=== PATIENT | male | born 1945 | race Caucasian/White ===

== ENCOUNTER 2021-05-10 13:12 | Emergency (ER) | payer OTHER ==
[~2021-05-10] VITALS: Ht 180.3 cm; Wt 98.0 kg
[2021-05-10] MEDS ORDERED: BASAGLAR K100 UNIT/1 SC (13:51)
[2021-05-10] MEDS ORDERED: LEVSOD137 PO (13:52)
[2021-05-10] MEDS ORDERED: PRAV20 PO (13:52)
[2021-05-10] MEDS ORDERED: DILT120ERA PO (13:53)
[2021-05-10] MEDS ORDERED: LOSA50 PO (13:53)
[2021-05-10] MEDS ORDERED: CITALOPRAM HBR20 M1 PO (13:54)
[2021-05-10] MEDS ORDERED: ACET500 PO (17:38)
== END 2021-05-10 18:07 | disposition home or self-care (01) ==
LOC: ER 13:12
DX: S72.112A Displaced fracture of greater trochanter of left femur, initial encounter for closed fracture (principal); F17.200 Nicotine dependence, unspecified, uncomplicated; W19.XXXA Unspecified fall, initial encounter
CPT/HCPCS: 73502; 73552; 73700; 99285-25

== ENCOUNTER 2021-05-22 17:21 | Observation (INO) | payer OTHER ==
[~2021-05-22] VITALS: Ht 182.9 cm; Wt 87.0 kg
[~2021-05-22 17:21] MED LIST: ACET500 PO; BASAGLAR K100 UNIT/1 SC; CITALOPRAM HBR20 M1 PO; DILT120ERA PO; LEVSOD137 PO; LOSA50 PO; PRAV20 PO
[2021-05-22 18:02] LABS: BASOPHILS ABSOLUTE AUTO 0.03 K/mm3 (0.00-0.23); BASOPHILS PERCENT AUTO 0 % (0-2); EOSINOPHILS ABSOLUTE AUTO 0.01 K/mm3 (0.00-0.68); EOSINOPHILS PERCENT AUTO 0 % (0-6); Hematocrit 40.7 % (37.0-53.0); Hemoglobin 14.3 g/dL (13.5-17.5); IMMATURE GRAN ABSOLUTE AUTO 0.06 K/mm3 (0.00-0.10); IMMATURE GRAN PERCENT AUTO 0 % (0-1); LYMPHOCYTES ABSOLUTE AUTO 0.97 K/mm3 (0.84-5.20); LYMPHOCYTES PERCENT AUTO 7 % (21-46); MONOCYTES ABSOLUTE AUTO 1.23 K/mm3 (0.16-1.47); MONOCYTES PERCENT AUTO 9 % (4-13); Mean Corpuscular HGB 32.9 pg (26.0-34.0); Mean Corpuscular HGB Conc 35.1 g/dL (31.5-36.5); Mean Corpuscular Volume 94 fL (80-100); Mean Platelet Volume 9.3 fL (9.1-12.4); NEUTROPHILS ABSOLUTE AUTO 11.88 K/mm3 (1.96-9.15); NEUTROPHILS PERCENT AUTO 84 % (41-73); Platelet Count 333 K/mm3 (150-400); RDW Coefficient Variation 14.3 % (11.7-14.2); Red Blood Cell Count 4.34 M/mm3 (4.30-5.90); White Blood Cell Count 14.18 K/mm3 (4.00-11.30)
[2021-05-22 18:34] LABS: Alanine Aminotransfer (ALT/SGP 48 U/L (12-78); Albumin, Blood 3.1 g/dL (3.4-5.0); Alk Phos 160 U/L (50-136); Anion Gap 10 mmol/L (6-16); Aspartate Aminotrans (AST/SGOT 60 U/L (12-37); Bilirubin, Total 0.8 mg/dL (0.1-1.0); Blood Urea Nitrogen 13 mg/dL (8-24); Bun/Creatinine Ratio 18.4 (12.0-20.0); CO2, Blood 19 mmol/L (21-32); Calcium, Blood 9.1 mg/dL (8.5-10.1); Chloride, Blood 104 mmol/L (98-108); Creatinine, Blood 0.71 mg/dL (0.60-1.20); Globulin, Blood 3.1 g/dL (2.2-4.0); Glomerular Filtration Rate >60 (60-); Glucose, Blood 348 mg/dL (70-99); Potassium, Blood 5.1 mmol/L (3.5-5.5); Sodium, Blood 133 mmol/L (136-145); Total Protein, Blood 6.2 g/dL (6.4-8.2); Troponin I 0.041 ng/mL (0.000-0.040)
[2021-05-22] MEDS ORDERED: ASPI81CH PO (22:04)
--- NOTE | 2021-05-23 01:41 | NUR ---
ADMISSION: LATE ENTRY FOR 05/22/212129 PATIENT WAS RECIEVED VIA STRETCHER FROM ER WAS ABLE TO TRANSFER TO THE BED ON HIS OWN. PATIENT IS ORIENTED TO ROOM AND CALL [facility]. MULTIPLE FALLS AT HOME, BED ALARM IS ON. THERE IS A SUSPICIOUS BRUISE ON THE BOTTOM OF THE LEFT FOOT JUST BELOW THE TOES. THERE ARE MULTIPLE SCABS OBSERVED ON BILAT KNEES AND SHINS THAT PATIENT ATTRIBUTES TO FALLS AND BUMPING ONTO THINGS. PATIENT LIVES ON DAUGHTERS PROPERTY BUT IN A SEPARATE HOUSE. WILL NEED PT/OT EVAL FOR SELF CARE AND SAFETY AT HOME.
[2021-05-23 01:55] LABS: Hematocrit 38.5 % (37.0-53.0); Hemoglobin 13.5 g/dL (13.5-17.5); Mean Corpuscular HGB 32.7 pg (26.0-34.0); Mean Corpuscular HGB Conc 35.1 g/dL (31.5-36.5); Mean Corpuscular Volume 93 fL (80-100); Mean Platelet Volume 9.3 fL (9.1-12.4); Platelet Count 276 K/mm3 (150-400); RDW Standard Deviation 46.3 fL (35.1-46.3); Red Blood Cell Count 4.13 M/mm3 (4.30-5.90); White Blood Cell Count 10.61 K/mm3 (4.00-11.30)
[2021-05-23 02:50] LABS: Anion Gap 7 mmol/L (6-16); Blood Urea Nitrogen 12 mg/dL (8-24); Bun/Creatinine Ratio 16.7 (12.0-20.0); CO2, Blood 24 mmol/L (21-32); Calcium, Blood 8.8 mg/dL (8.5-10.1); Chloride, Blood 107 mmol/L (98-108); Creatinine, Blood 0.72 mg/dL (0.60-1.20); Glomerular Filtration Rate >60 (60-); Glucose, Blood 178 mg/dL (70-99); Potassium, Blood 4.4 mmol/L (3.5-5.5); Sodium, Blood 138 mmol/L (136-145); Troponin I 0.031 ng/mL (0.000-0.040)
--- NOTE | 2021-05-23 06:04 | NUR ---
SHIFT SUMMARY: PATIENT CONTINUED TO HAVE LEFT SHOULDER AND LEFT RIB AREA PAIN. DR AYALA WAS NOTIFIED AND ORDER FOR IV MORPHINE 2.5 MG PRN WAS OBTAINED AND WAS GIVEN WITH GOOD EFFECT. TROPONINS ARE TRENDING DOWN, 0.031 WAS LAST RESULT. BED ALARM IS ON FOR SAFETY.
[2021-05-23] MEDS ORDERED: OMEP20ER PO (13:32)
[2021-05-23] MEDS ORDERED: ONDA4ODT MM (13:32)
--- NOTE | 2021-05-23 16:50 | NUR ---
DISCHARGE PATIENT TRANSPORTED VIA WHEELCHAIR TO PRIVATE VEHICLE. DISCHARGE INSTRUCTIONS EXPLAINED TO PATIENT. PATIENT STATED UNDERSTANDING. PACKET SENT WITH PATIENT. IV REMOVED WITHOUT DIFFICULTY. TELE REMOVED WITHOUT DIFFICULTY. BELONGINGS SENT WITH PATIENT. MEDICATIONS FAXED TO PERFERRED PHARMACY. PATIENT TO SCHEDULE FOLLOW UP WITH PCP.
== END 2021-05-23 16:49 | disposition home or self-care (01) ==
LOC: ER 17:21 → MEDS 17:22
PROVIDERS: Emergency Medicine; ADMIT Internal Medicine
DX: R77.8 Other specified abnormalities of plasma proteins (principal); R07.89 Other chest pain; R11.2 Nausea with vomiting, unspecified; I10 Essential (primary) hypertension; E11.9 Type 2 diabetes mellitus without complications; D72.829 Elevated white blood cell count, unspecified; Z79.4 Long term (current) use of insulin; Z87.891 Personal history of nicotine dependence
CPT/HCPCS: 36415; 71045; 80048; 80053; 82947; 83690; 84484; 85025; 85027; 93005; 93010; 97116; 97162; A9270; J1650; J1815; J2270

== ENCOUNTER 2022-11-20 10:58 | Inpatient (IN) | payer OTHER ==
[~2022-11-20] VITALS: Ht 182.9 cm; Wt 83.7 kg
[~2022-11-20 10:58] MED LIST changes: +ASPI81CH PO; +OMEP20ER PO; +ONDA4ODT MM
[2022-11-20 12:56] LABS: BASOPHILS ABSOLUTE AUTO 0.04 K/mm3 (0.00-0.23); BASOPHILS PERCENT AUTO 0 % (0-2); EOSINOPHILS ABSOLUTE AUTO 0.04 K/mm3 (0.00-0.68); EOSINOPHILS PERCENT AUTO 0 % (0-6); Hematocrit 33.6 % (37.0-53.0); Hemoglobin 11.4 g/dL (13.5-17.5); IMMATURE GRAN ABSOLUTE AUTO 0.07 K/mm3 (0.00-0.10); IMMATURE GRAN PERCENT AUTO 0 % (0-1); LYMPHOCYTES ABSOLUTE AUTO 1.07 K/mm3 (0.84-5.20); LYMPHOCYTES PERCENT AUTO 6 % (21-46); MONOCYTES ABSOLUTE AUTO 1.35 K/mm3 (0.16-1.47); MONOCYTES PERCENT AUTO 8 % (4-13); Mean Corpuscular HGB 32.5 pg (26.0-34.0); Mean Corpuscular HGB Conc 33.9 g/dL (31.5-36.5); Mean Corpuscular Volume 96 fL (80-100); NEUTROPHILS ABSOLUTE AUTO 15.26 K/mm3 (1.96-9.15); NEUTROPHILS PERCENT AUTO 86 % (41-73); Platelet Count 207 K/mm3 (150-400); RDW Coefficient Variation 12.2 % (11.7-14.2); RDW Standard Deviation 42.7 fL (35.1-46.3); Red Blood Cell Count 3.51 M/mm3 (4.30-5.90); White Blood Cell Count 17.83 K/mm3 (4.00-11.30)
[2022-11-20 13:11] LABS: Albumin, Blood 2.3 g/dL (3.4-5.0); Albumin/Globulin Ratio 0.7 (0.8-1.8); Bilirubin, Total 0.4 mg/dL (0.1-1.0); Bun/Creatinine Ratio 25.7 (12.0-20.0); Calcium, Blood 8.1 mg/dL (8.5-10.1); Creatinine, Blood 0.94 mg/dL (0.60-1.20); Globulin, Blood 3.2 g/dL (2.2-4.0); Potassium, Blood 4.7 mmol/L (3.5-5.5); Total Protein, Blood 5.5 g/dL (6.4-8.2)
[2022-11-20 14:21] LABS: Source, Urine Clean Catch
[2022-11-20 14:53] LABS: Bilirubin, Urine Neg (Neg); Blood, Urine Neg (Neg); Color, Urine Yellow (P-Yellow); Glucose Qualitative, Urine 2+ (Neg); Ketones, Urine Neg (Neg); Leukocyte Esterase, Urine 2+ (Neg); Nitrite, Urine Neg (Neg); Protein, Urine 1+ (Neg); Specific Gravity, Urine 1.015 (1.003-1.022); Urobilinogen, Urine NORM (Normal)
[2022-11-20 15:01] LABS: Appearance, Urine Hazy (Clear)
[2022-11-20 15:02] LABS: Squamous Epithelial Cells Few /hpf (Few)
[2022-11-20 15:03] LABS: Amorphous Light (0-Heavy); Bacteria Many /hpf; Mucus Light (0-Heavy)
[2022-11-20 17:46] VITALS: BP 114/63
[2022-11-20 19:28] VITALS: BP 107/53
[2022-11-21 02:28] VITALS: BP 96/52
--- NOTE | 2022-11-21 06:31 | NUR ---
PT BLOOD SUGAR 29 AT HS CHECK, INCREASED TO 249 AFTER SANDWICH, PEPSI, APPLESAUCE, JUICE AND CRACKERS. D50 NOT ADMINISTERED AT THAT POINT. OTHERWISE VSS, AO, PLEASANT. DAMON PATENT WITH ADEQUATE OUTPUT, PLACED / FOR ACUTE RETENTION. FIRE SAFETY REVIEWED WITH PATIENT.
[2022-11-21 07:31] VITALS: BP 119/64
--- NOTE | 2022-11-21 10:02 | NUR ---
DAMON CATHETER CLAMPED TO BEGIN BLADDER TRAINING.
[2022-11-21 10:25] LABS: BASOPHILS ABSOLUTE AUTO 0.04 K/mm3 (0.00-0.23); BASOPHILS PERCENT AUTO 0 % (0-2); EOSINOPHILS ABSOLUTE AUTO 0.24 K/mm3 (0.00-0.68); EOSINOPHILS PERCENT AUTO 3 % (0-6); Hematocrit 32.7 % (37.0-53.0); Hemoglobin 11.3 g/dL (13.5-17.5); IMMATURE GRAN ABSOLUTE AUTO 0.05 K/mm3 (0.00-0.10); IMMATURE GRAN PERCENT AUTO 1 % (0-1); LYMPHOCYTES ABSOLUTE AUTO 1.12 K/mm3 (0.84-5.20); LYMPHOCYTES PERCENT AUTO 12 % (21-46); MONOCYTES ABSOLUTE AUTO 1.09 K/mm3 (0.16-1.47); MONOCYTES PERCENT AUTO 11 % (4-13); Mean Corpuscular HGB 32.6 pg (26.0-34.0); Mean Corpuscular HGB Conc 34.6 g/dL (31.5-36.5); Mean Corpuscular Volume 94 fL (80-100); Mean Platelet Volume 11.2 fL (9.1-12.4); NEUTROPHILS ABSOLUTE AUTO 7.07 K/mm3 (1.96-9.15); NEUTROPHILS PERCENT AUTO 74 % (41-73); Platelet Count 216 K/mm3 (150-400); RDW Coefficient Variation 12.4 % (11.7-14.2); RDW Standard Deviation 42.9 fL (35.1-46.3); Red Blood Cell Count 3.47 M/mm3 (4.30-5.90); White Blood Cell Count 9.61 K/mm3 (4.00-11.30)
[2022-11-21 15:24] VITALS: BP 104/64
--- NOTE | 2022-11-21 18:40 | NUR ---
SHIFT SUMMARY: PT A/O X 4, STANDBY ASSIST FOR AMBULATION AND TRANSFERS. PT PLEASANT AND COOPERATIVE WITH CARE. PT BS HAVE INCREASED TODAY. PT EATING WELL THROUGHOUT THE DAY. PT STARTED BLADDER TRAINING THROUGHOUT THE DAY. DAMON WAS CLAMPED AND PT DID NOT REPORT FEELING LIKE HE HAD TO URINATE THROUGHOUT THE DAY. EACH TIME DAMON UNCLAMPED PT DRAINED SEVERAL HUNDRED CC'S OF URINE. PT WAS EDUCATED THIS MORNING ON IGNITION SOURCES AND RISK OF INJURY WHILE SMOKING WITH OXYGEN IN USE. PT VU. PT DENIED HAVING IGNITION SOURCES. PT IS NOT ON OXYGEN. PT WAS NOT WITNESSED UTILIZING SMOKING MATERIALS WHEN ROUNDED ON THROUGHOUT THE DAY.
[2022-11-21 19:36] VITALS: BP 121/68
[2022-11-22 02:24] VITALS: BP 129/79
[2022-11-22 07:15] VITALS: BP 132/75
--- NOTE | 2022-11-22 07:42 | NUR ---
BLADDER TRAINING STILL IN PROGRESS. PT DID NOT FEEL URGE TO URINATE PRIOR TO EMPTYING 900+ AND 1200+ VOIDS. PT WAS CONFUSED BUT REDIRECTABLE DURING THE NIGHT. CBG WAS ELEVATED, HS INSULIN GIVEN. OTHERWISE UNEVENTFUL NIGHT. FIRE SAFETY REVIEWED.
[2022-11-22 15:46] VITALS: BP 134/77
--- NOTE | 2022-11-22 18:37 | NUR ---
SHIFT SUMMARY/ TRANSFER NOTE- REPORT GIVEN TO VICKY TIPTON, PT TRANSFERED TO SCU D/T SLIGHT CONFUSION AND INCREASED RISK FOR FALLS. PT WAS REDIRECTABLE BUT WAS BEGINNING TO GET FRUSTRATED WITH STAFF AND BED/CHAIR ALARMS. PT STILL REQUIRES SUPERVISION WHEN UP FOR SAFETY SO BED AND CHAIR ALARMS ARE NEEDED TO ALERT STAFF WHEN HE IS UP. PT HAS HAD HIGH BLOOD SUGARS T/O THE SHIFT, THIS EVENING DR CINTRON CHANGED FROM LOW CS TO JUAREZ CS. PT RECIEVED 20 UNITS OF HUMALOG. IV WAS CHANGED FOR A FRESH ONE THIS MORNING THE ONE IN THE LEFT HAND WAS LEAKING. RFA IV PATENT AT THE TIME OF TRANSFER. PT ESCORTED VIA WC BY RN TO RM [id number]. NO S&S OF DISTRESS NOTED AT THE TIME OF TRANSFER.
[2022-11-22 19:21] VITALS: BP 136/71
[2022-11-23 05:18] VITALS: BP 143/73
[2022-11-23 07:18] VITALS: BP 124/70
[2022-11-23 12:01] LABS: SARS-Cov-2 (COVID-19) PCR, MMC NEGATIVE (NEGATIVE)
[2022-11-23 15:21] VITALS: BP 96/64
--- NOTE | 2022-11-23 18:19 | NUR ---
PATIENT A/OX2-3, VERY PLEASANT AND COOPERATIVE WITH CARE. VSS, ON RA. BLOOD SUGAR 400 AT BREAKFAST AND 52 BEFORE DINNER. PATIENT TOLERATING ADA DIET. TEARFUL AT TIMES TODAY WHEN TALKING ABOUT HIS FAMILY AND THEM NOT WILLING TO TAKE HIM HOME AND CARE FOR HIM. PATIENT REPORTED RIGHT SIDE CHEST/RIB PAIN WITH MOVEMENT THAT STARTED TODAY. DR. CINTRON AWARE AND ORDERED CHEST X-RAY WHICN WAS NEGATIVE. TYLENOL GIVEN X1 TODAY TO TREAT PAIN WITH GOOD RELIEF. DAMON TO GRAVITY WITH ADEQUATE URINE OUTPUT. WALKED IN HALLS WITH CANE AND SBA TODAY. PT/OT WORKING WITH PATIENT. UNABLE TO EDUCATE PATIENT REGARDING IGNITION SOURCES AND RISKS OF INJURY WHILE O2 IN USE DUT TO AMS. PATIENT IS ON RA.
[2022-11-23 19:24] VITALS: BP 119/64
[2022-11-24 04:37] VITALS: BP 133/74
--- NOTE | 2022-11-24 17:02 | NUR ---
PATIENT A/OX2-3 THIS SHIFT. VERY PLEASANT AND COOPERATIVE WITH CARE. TYLENOL GIVEN TODAY X1 FOR R CHEST MUSCULAR PAIN. VSS, ON RA. DAMON TO GRAVITY PATENT AND DRAINING TO GRAVITY. TOLERATING ADA DIET. ACHS BLOOD SUGARS. PLAN IS TO D/C TO TOMORROW TO SNF. NO ACUTE CHANGES THIS SHIFT. HOURLY ROUNDING TO ASSESS ROOM SAFETY AND CHECK FOR IGNITION SOURCES. PATIENT DOES NOT HAVE O2 IN USE.
[2022-11-24 19:28] VITALS: BP 111/62
[2022-11-25 03:57] VITALS: BP 128/67
--- NOTE | 2022-11-25 06:48 | NUR ---
SHIFT SUMMARY PT A&OX3 AND PLEASANT. FORGETFUL AT TIMES. BG WAS 203 AT START OF SHIFT. LONG ACTING INSULIN ADMINISTERED PER EMAR. PT'S BLOOD SUGARS HAVE BEEN VERY HIGH OR LOW AT TIMES SO BG TAKEN AT ABOUT 0100 AND WAS 245. PT WAS ABLE TO SLEEP T/O MOST OF NIGHT. C/O SOME PAIN IN RIGHT LOWER CHEST BUT DID NOT NEED MEDICATION. VSS. NO ACUTE CHANGES. PT WAS REMINDED AT START OF SHIFT OF POSSIBLE SOURCES OF IGNITION AND NO SMOKING POLICY. BED IN LOWEST POSITION AND CALL LIGHT IN REACH.
[2022-11-25 07:39] VITALS: BP 134/71
[2022-11-25 14:11] LABS: T-TRANSGLUTAMINASE (TTG) IGA <2 U/mL (0-3); T-TRANSGLUTAMINASE (TTG) IGG <2 U/mL (0-5)
[2022-11-25 15:36] VITALS: BP 110/61
[2022-11-25] MEDS ORDERED: TIAZAC120 M1 PO (15:53)
[2022-11-25] MEDS ORDERED: INSULANI SC ×2 (15:54→15:55)
[2022-11-25] MEDS ORDERED: HUMALOG KW100 UNIT/1 SC ×2 (15:55→15:58)
[2022-11-25] MEDS ORDERED: LOSA50 PO (15:59)
--- NOTE | 2022-11-25 16:13 | NUR ---
LUCIA filled out today with pt, he is leaving for [facility]" today. He is alert, oriented, pleasant and cooperative.
--- NOTE | 2022-11-25 16:59 | NUR ---
DC TO SNF PT TO [facility] VIA MEDICAL W/C TRANSPORT WITH ALL PERSONAL BELONGINGS. DC PKT SENT WITH TRANSPORT PERSONNEL.
== END 2022-11-25 16:40 | DRG 638 ==
LOC: ER 10:58 → MEDS 15:44 → ENPENDDIS 11-23 12:45 → MEDS 11-23 23:09
PROVIDERS: Emergency Medicine; Internal Medicine; ADMIT Internal Medicine
PROC: 0T9B70Z Drainage of Bladder with Drainage Device, Via Natural or Artificial Opening (ICD-10-PCS; principal; 2022-11-20)
DX: E11.649 Type 2 diabetes mellitus with hypoglycemia without coma (principal); E87.20 Acidosis, unspecified; R63.0 Anorexia; I10 Essential (primary) hypertension; E03.9 Hypothyroidism, unspecified; R82.71 Bacteriuria; Z20.822 Contact with and (suspected) exposure to COVID-19; F32.A Depression, unspecified; G30.9 Alzheimer's disease, unspecified; N40.1 Benign prostatic hyperplasia with lower urinary tract symptoms; R33.8 Other retention of urine; F02.80 Dementia in other diseases classified elsewhere, unspecified severity, without behavioral disturbance, psychotic disturbance, mood disturbance, and anxiety; D63.8 Anemia in other chronic diseases classified elsewhere; F17.210 Nicotine dependence, cigarettes, uncomplicated; Z79.890 Hormone replacement therapy; Z68.25 Body mass index [BMI] 25.0-25.9, adult; Z79.4 Long term (current) use of insulin
CPT/HCPCS: 36415; 51702; 71045; 71046; 74178; 80053; 81001; 82533; 82607; 82746; 82947; 83036; 83516; 83605; 84145; 84484; 85025; 86364; 87040; 87077; 87086; 87106; 87186; 93005; 93010; 96365-59; 96366; 96367; 96368; 96372; 97116; 97162; 97166; 97535; 99285-25; A9270; G0378; J0696; J1650; J1815; J3411; J7030; J7050; Q9967; U0002